=== PATIENT | male | born 1945 | race Caucasian/White ===

== ENCOUNTER 2016-12-29 07:30 | Inpatient (IN) | payer MEDICARE, MEDICAID ==
[~2016-12-29 07:30] MED LIST: Buffered Lidocaine 1% SYRIN* 3 ML/SYR SYRINGE INTRADERM ONE; Dexamethasone IV* 4 MG/ML 1 ML (4 MG) IV SLOW PU ONE; Famotidine IV* 10 MG/ML 2 ML (20 mg) IV ONE
--- NOTE | 2017-01-14 21:59 | HP ---
HISTORY AND PHYSICAL: DATE OF ADMISSION/SURGERY: 01/19/17 DATE OF OFFICE VISIT: 01/14/17 SURGEON: Dr. Sousa. PROCEDURE: Right total knee replacement. CHIEF COMPLAINT: Right knee pain. HISTORY OF PRESENT ILLNESS: The patient is a very pleasant 71-year-old gentleman with a longstanding history of right knee pain. He is noted over the past year that he has had increased swelling in his knee and has had to modify his activities. He has failed conservative treatments such as exercises and anti-inflammatories and has elected to undergo a right total knee replacement by Dr. Sousa. PAST MEDICAL HISTORY: 1. Osteoarthritis. 2. BPH. 3. Diabetes mellitus, type 2. 4. Hypertension. 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 PAST SURGICAL HISTORY: 1. 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 2. Appendectomy in . MEDICATIONS: 1. Terazosin 5 mg 1 tablet by mouth daily. 2. Glipizide 10 mg 1 tablet by mouth twice daily. 3. Metformin 1000 mg 1 tablet by mouth twice daily. 4. Onglyza 5 mg 1 tablet by mouth daily. 5. Lisinopril 10 mg 1 tablet by mouth daily. 6. Ibuprofen as needed for pain. ALLERGIES: No known drug allergies. FAMILY HISTORY: Father, heart disease. Mother from "old age" at age 93. Brother with cancer. No bleeding disorders or clotting difficulties or blood clots in the family. SOCIAL HISTORY: The patient is a hussein and he is and resides with his . He has no tobacco use currently. He discontinued approximately 30 years ago. No history of drug use. Rare alcohol use. The patient does not check his blood sugars at home. REVIEW OF SYSTEMS: General: Negative for fevers, chills, night sweats. No difficulties with anesthesia. HEENT: Negative for headache, lightheadedness, or syncopal episodes. Integumentary: Negative for abrasions, lesions, or open wounds. Cardiothoracic: Negative for chest pain, palpitations, or edema. Positive for hypertension. Pulmonary: Negative for shortness of breath with exertion, chronic cough, or COPD. GI: Negative for nausea, vomiting, constipation, diarrhea, or GERD. : Negative for nocturia, urinary frequency , urgency, history of UTIs, or kidney problems. Musculoskeletal: Positive for right knee pain. Negative for intermittent back pain or fractures. Neuro: Negative for paresthesias, seizures, stroke, or epilepsy. Positive for numbness in the right foot. Endocrine: Negative for thyroid disease. Positive for diabetes, type 2, controlled with medications. Hematologic: Negative for easy bruising, anemia, or excessive bleeding. No history of DVTs or PEs. Infectious Disease: Negative for MRSA, hepatitis C, or HIV. PHYSICAL EXAMINATION GENERAL: Well appearing, in no acute distress, alert and oriented, sitting comfortably, antalgic gait favoring the right side. VITAL SIGNS: Height 73 inches, weight 245 pounds. Pulse 78, blood pressure 130 /85, respirations 18. BMI of 32.3. HEENT: Normocephalic, atraumatic. EOMI. NECK: Supple. No palpable lymph nodes. Throat clear. PULMONARY: Lungs are clear to auscultation bilaterally. No crackles, rhonchi, or wheezes. HEART: Regular rate and rhythm. No murmurs, gallops, or rubs. ABDOMEN: Soft, nontender. Mild obesity. Normoactive bowel sounds. Negative CVA tenderness bilaterally. NEUROLOGIC: Alert and oriented x3. Cranial nerves grossly intact. Sensation intact to light touch, bilateral lower extremities. MUSCULOSKELETAL: Left knee full range of motion. No joint effusion appreciated. Right knee, minimal joint effusion. Range of motion is 0 to approximately 100 degrees, causing pain after 100. Posterior tibial pulses 2+ bilaterally. No edema in bilateral lower extremities. Negative Homans' sign bilaterally. DIAGNOSTIC STUDIES: X-rays of the knee were obtained 01/13/17. IMPRESSION: The patient is a very pleasant 71-year-old gentleman who elects to undergo a right total knee replacement by Dr. Sousa on 01/19/17. He has had cardiac clearance due to an abnormal EKG by Dr. Campbell on 01/01/17 and did not require any further cardiac workup. He was cleared by his primary doctor, Dr. Crump, on 12/22/16. He will go to the preoperative testing at [facility] today for PT/INR, blood typing, and chest x-ray. Postoperatively, the patient would prefer to go home as opposed to rehab. He was not given any medications today. We discussed the risks and benefits associated with the procedure. He had no further questions or concerns; however, will call us if any do arise. FRANCES RICKS [id number]/[facility] #: [id number] [facility] CENTERFaye
[2017-01-19] MEDS ORDERED: Buffered Lidocaine 1% SYRIN* 3 ML/SYR SYRINGE INTRADERM ONE (06:00)
[2017-01-19] MEDS ORDERED: ceFAZolin 2 GM PREMIX(*) 2 GM/50 ML BAG IVPB ONE (08:46)
[2017-01-19] MEDS ORDERED: Midazolam* 1 MG/ML 2 ML VIAL (2 MG) ONE (09:36)
[2017-01-19] MEDS ORDERED: fentaNYL* 50 MCG/ML 2 ML VIAL (100 MCG VIAL) ONE ×2 (09:36→12:22)
[2017-01-19] MEDS ORDERED: Famotidine IV* 10 MG/ML 2 ML (20 mg) ONE (09:36)
[2017-01-19] MEDS ORDERED: Bupivacaine 0.25% EPI 200,000* 30 ML SDV ONE (10:47)
[2017-01-19] MEDS ORDERED: Cisatracurium* 2 MG/ML MDV 10 ML ONE (10:54)
[2017-01-19] MEDS ORDERED: HYDROmorphone* 1 MG/ML 1 ML SYR ONE ×2 (11:32→11:49)
[2017-01-19] MEDS ORDERED: Lidocaine 2% PF* 5 ML VIAL ONE (11:39)
[2017-01-19] MEDS ORDERED: Dexamethasone IV* 4 MG/ML 1 ML (4 MG) ONE (11:39)
[2017-01-19] MEDS ORDERED: Propofol* 10 MG/ML 20 ML BTL IV PUSH ONE (11:39)
[2017-01-19] MEDS ORDERED: Ketorolac INJ* 30 MG/ML 1 ML VIAL ONE (12:42)
[2017-01-19] MEDS ORDERED: HYDROmorphone* 1 MG/ML 1 ML SYR IV PRN (12:44)
[2017-01-19] MEDS ORDERED: Ondansetron INJ* 2 MG/ML VIAL IV PRN (12:44)
[2017-01-19] MEDS ORDERED: PROCHLORPERAZINE INJ 5 MG/ML 2 ML VIAL IV PRN (12:44)
[2017-01-19] MEDS ORDERED: Acetaminophen TAB* 325 MG PO PRN ×2 (12:44→13:23)
[2017-01-19] MEDS ORDERED: Scopolamine 1.5 mg* PATCH TRANSDERM PRN (12:44)
[2017-01-19] MEDS ORDERED: fentaNYL* 50 MCG/ML 2 ML VIAL (100 MCG VIAL) IV PRN (12:44)
[2017-01-19] MEDS ORDERED: Polyethylene Glycol 3350* 17 GM PACKET PO PRN (13:23)
[2017-01-19] MEDS ORDERED: diPHENhydraMINE IV* 50 MG/ML 1 ml VIAL (BENADRYL) IV PRN (13:23)
[2017-01-19] MEDS ORDERED: LACTULOSE* 30 ML UDC PO PRN (13:23)
[2017-01-19] MEDS ORDERED: Bisacodyl SUPP* 10 MG SUPP PR PRN (13:23)
[2017-01-19] MEDS ORDERED: Morphine INJ* 4 MG/ML 1 ML SYRINGE IV PRN (13:23)
[2017-01-19] MEDS ORDERED: Ondansetron TAB* 4 MG PO PRN (13:23)
[2017-01-19] MEDS ORDERED: D5W 1/2 NS 1000 ML BAG* 1,000 ML IV SCH (14:00)
[2017-01-19] MEDS ORDERED: Dextrose 50% Syringe 50 ML* 25 GM/50 ML SYRINGE IV PUSH PRN (14:20)
--- NOTE | 2017-01-19 14:21 | RAD ---
HISTORY: Status post right knee arthroplasty COMPARISONS: None VIEWS: 2, Frontal and lateral views of the right knee FINDINGS: BONE DENSITY: Normal. BONES: The patient is status post right knee arthroplasty. There is no hardware failure or osteolysis. JOINTS: The patient is status post right knee arthroplasty ALIGNMENT: There is no dislocation. SOFT TISSUES: There is postsurgical change to the soft tissue OTHER FINDINGS: None. IMPRESSION: STATUS POST RIGHT KNEE ARTHROPLASTY
[2017-01-19] MEDS: ceFAZolin 1 GM in Dextrose (*) 1 GM/50 ML BAG IVPB SCH (15:56)
--- NOTE | 2017-01-19 16:17 | CONS ---
CONSULTATION REPORT: DATE OF CONSULT: 01/19/17 PRIMARY CARE PROVIDER: Dr. Crump. ATTENDING PHYSICIAN WHILE IN THE HOSPITAL: Dr. Vipul Burt (report being dictated by Freedom Mendez NP). REQUESTING PHYSICIAN FOR CONSULTATION: Dr. Sousa. REASON FOR MEDICAL CONSULTATION: Medical evaluation and management of her comorbid medical problems. HISTORY OF PRESENT ILLNESS: I refer you to Dr. Sousa's H and P for further details. In short, Mr. Hyde is a 71-year-old male patient. He has a history of osteoarthritis, BPH, hypertension, polio and diabetes. He has been dealing with right knee pain for some time. It has gotten to the point where he was failing conservative management, affecting his activities of daily living. It got to the point where it was felt that he would benefit from an elective total knee replacement, which he underwent today with Dr. Sousa. Again, we were asked to evaluate to help manage his other medical problems. He was evaluated in the PACU. He denies having any chest pain. Denies having any shortness of breath. He states he feels a little tired, but he says his pain is well controlled. He says he does not feel lightheaded or like he is going to faint and he says that he does not really feel all that hungry right now, he just feels tired, this is his only complaint. He says he did not take his medications this morning. PAST MEDICAL HISTORY: Significant for: 1. Arthritis. 2. BPH. 3. Diabetes 4. Hypertension. 5. Polio. PAST SURGICAL HISTORY: 1. He has had now a right total knee replacement. 2. Appendectomy. 3. He has had a resection of a middle ear mass. HOME MEDICATIONS: Include: 1. Hytrin 5 mg daily. 2. Onglyza 5 mg daily. 3. Metformin 1000 mg p.o. b.i.d. 4. Lisinopril 10 mg daily. 5. Glucotrol 10 mg p.o. b.i.d. ALLERGIES TO MEDICATIONS: Include no known drug allergies. FAMILY HISTORY: His mother of old age at 93. His father had a history of heart disease. SOCIAL HISTORY: He is not a smoker. He does not drink alcohol. He is a hussein and his surrogate decision maker is his daughter and . REVIEW OF SYSTEMS: There is no documented fever. No significant weight change. There was no double vision. There is no ear discharge. He denies having any rhinorrhea. There is no sore throat. No thyroid enlargement. Denies having any chest pain. There is no orthopnea. No nocturnal dyspnea. There is no abdominal pain. No nausea. No vomiting. No dysuria. No frequency. There is no loss of consciousness. No pruritus and no skin ulcerations. Review of 14 systems completed, all others negative. PHYSICAL EXAMINATION: Vital Signs: Blood pressure 152/83, pulse 76, respirations 20, O2 saturation 94%, temperature 98.2. General: At this time, Mr. Hyde is a 71-year-old male patient. He is well nourished, well developed. He is sitting in the PACU bed. He does not appear to be in acute distress. HEENT: Head atraumatic, normocephalic. Eyes: Sclerae are anicteric. Mouth pale. Throat: Oral mucosa appears to be moist. No oropharyngeal erythema. Neck: Supple. Heart: Sounds S1, S2. Regular rate and rhythm. No murmurs, rubs, or gallops. Lungs: Clear to auscultation bilaterally. No wheezes, rales , or rhonchi. Abdomen: Soft, flat, nontender. Bowel sounds present. Extremities: Pulses 2+ throughout. Distal CSM checks are intact. In the right lower extremity, he has 5/5 strength in the upper. Neurologically, he is awake, he is alert, and he is oriented x3. His tongue is midline. Curbstone Setter are equal. He had no gross focal deficits. Skin: Grossly intact with the exception he has got incision to the right knee that is covered with an Elia dressing. DIAGNOSTIC STUDIES/LAB DATA: Preoperatively revealed WBC 6.0, RBC of 4.79, hemoglobin 14.4, hematocrit 43, platelet count 202, INR of 0.91, PTT of 32.5. Sodium 135, potassium 4.2, chloride 105, bicarb 22, BUN 16, creatinine 1, glucose 162, A1c of 10.2. AST 13, ALT 22. Preop urine showed trace ketones, 2 + glucose. He had an EKG preoperatively, which showed a normal sinus rhythm with a rate of 65. No ST elevations or T-wave inversions. Preop chest x-ray was negative. No acute disease. Old medical records were reviewed. ASSESSMENT AND PLAN: Mr. Hyde is a 71-year-old male patient coming into the care of Dr. Sousa today for an elective right total knee. Hospitalist service was asked to evaluate in consult. Recommendations at this point are: 1. Status post right total knee: I will defer the management of this to Dr. Sousa and his team. 2. Osteoarthritis: Defer the management to Dr. Crump and Dr. Sousa. 3. Benign prostatic hypertrophy: Continue Hytrin. 4. Diabetes: We will place him on lispro sliding scale. Appears to be stable. 5. Hypertension: For the time being, I am going to hold his lisinopril. May need to restart this tomorrow, but in the acute postoperative setting we will hold it for now. 6. Polio: Again, not an active issue. 7. Fluids, electrolytes, and nutrition: I did change his fluids from D5 half normal to LR because of the history of diabetes for overnight. This can be discontinued when he is taking good p.o. intake. In addition to this, I did place him on a consistent carbohydrate diet. 8. Code status: He is a full code. 9. DVT prophylaxis: Deferred to the primary team. TIME SPENT: Time spent on the consult was 60 minutes; greater than half the time was spent [id number] with the patient obtaining my history and physical, other half the time spent going over the plan of care with the patient and implementing plan of care. I did discuss the plan of care with my attending, Dr. Burt; he is in agreement. FREEDOM MENDEZ NP CC: Dr. Crump; Dr. Sousa * [id number]/[facility] #: [id number] [facility]PITAL[facility]aye
[2017-01-19] MEDS: amLODIPine TAB* 5 MG PO SCH (16:41)
[2017-01-19] MEDS ORDERED: Warfarin TAB(*) 10 MG PO ONE (17:00)
[2017-01-19] MEDS: Insulin LISPRO* 1 UNITS UNIT SUBCUT SCH (17:27)
[2017-01-19] MEDS: Docusate CAP* 100 MG PO SCH (20:44)
[2017-01-19] MEDS: Magnesium Hydroxide LIQ* 30 ML UDC PO SCH (20:56)
[2017-01-20] MEDS: oxyCODONE/Acetamin 5/325 MG* TAB PO PRN ×4 (00:22→21:51)
[2017-01-20] MEDS: ceFAZolin 1 GM in Dextrose (*) 1 GM/50 ML BAG IVPB SCH ×2 (00:46→08:37)
--- NOTE | 2017-01-20 01:13 | OP ---
DATE OF OPERATION: 01/19/17 - ROOM #348 DATE OF : 41 SURGEON: Daniel Sousa MD EMERGENCY PREPAREDNESS MANAGER: Lizette Castellon RPA ANESTHESIOLOGIST: Andrew Melendrez MD ANESTHESIA: General. PRE-OP DIAGNOSIS: Osteoarthritis, right knee. POST-OP DIAGNOSIS: Osteoarthritis, right knee. OPERATIVE PROCEDURE: Right total knee arthroplasty. ESTIMATED BLOOD LOSS: Less than 50 cc. COMPLICATIONS: None. HARDWARE: Stephanie Persona #8 femur, G-tibia, 12-mm polyethylene spacer, 35 mm all polyethylene patellar button. SUMMARY: Mr. Hyde is a 71-year-old male who has had a long history of troubles with right knee pain. He had been treated conservatively, but has been having more and more limitations with the knee. I discussed with him that a total knee arthroplasty should work well to decrease his pain and improve his function. Risks of surgery such as infection, scar formation, stiffness, DVT, pulmonary embolism, hardware failure were some of the risks discussed. He had been declared medically optimized and wished to proceed. DESCRIPTION OF PROCEDURE: The patient was brought to the OR and general anesthesia was established. Hernandez catheter was then placed. Tourniquet was placed over the proximal right thigh and was used during the case. Total tourniquet time would be 75 minutes. Right knee was prepped and then draped. Skin over the incisional area was infiltrated using 0.25% Marcaine with epinephrine and approximately 20 cc were used at the beginning of the case and then another 40 cc were placed at the end of the case. Esmarch was used to exsanguinate the leg and the tourniquet was raised. Midline incision was made beginning just medial to the tibial tubercle and carried about 4 cm above the superior pole of the patella. Incision was carried down through the skin and subcutaneous tissues. Small bleeders encountered were ligated using electrocautery. Extensor mechanism was exposed and a sharp parapatellar arthrotomy was made. Quite a bit of clear yellowish joint fluid was encountered. Several small pearls were found and removed. Fat pad was sharply excised and the soft tissues were sharply elevated from the medial side of the tibia. Patella measured almost 26 mm in thickness and a nice 10-mm cut was taken. Patella was then easily subluxated laterally and the knee was flexed up. Nice exposure of the distal femur was obtained. Step drill was used to open the femoral canal and intramedullary guide was placed. Guide was adjusted until it was parallel with the epicondyles and then it was pinned into place. Distal femoral cutting guide was then pinned into place and the intramedullary guide was removed. Distal femoral cut was taken and it appeared a nice cut was obtained. Femur was sized and because of large osteophytes, it was initially quite difficult to seat. After resecting some osteophytes, he sat nicely for an 8. Holes were drilled and cutting block was placed. Drilling the superior hole to see if I would notch, the cutting block was seated a little too inferiorly. This was moved up in 2 mm increments until the die presser drill came out right at the level of the anterior cortex. Anterior and posterior femoral cuts followed by the chamfer cut were all taken. Attention was then turned to the tibia. Step drill was used to open the tibial canal and the intramedullary guide was placed. Outrigger was assembled and adjusted until it would take 2 mm from the very worn medial side. Cutting guide was then pinned into place and the proximal tibial cut was taken. The cut was nice and thin right on that side and it could be seen how the saw came up right along that area of hardened bone. Cutting guide was removed and spacer block was placed. With a 10 block and using a drop maryanne, it could be seen how that hardened area had pushed me up a little bit and it was in slight varus. Re-cutter was then placed and pinned into place and then used to re-cut the tibia. Now, with the spacer block sitting flush on the top of the tibia, drop maryanne came right down along the anterior spine of the tibia as well. It could be seen, however, how there was a bit of a gap on the lateral femoral condyle and I needed to take a millimeter from the medial femoral condyle. Saw was used to free hand that side and then the cutting block was re-placed and the chamfer cuts re-cut. With its well block, he sat very nicely coming out in the full extension and with flexion was nice and stable. Tibia was sized and the G sat very nicely. H was trialed, but it was too big from medial to lateral. It would have fit anterior to posterior, however. G was then pinned into place and the proximal tibia was drilled and then punched. #8 femur was also placed and the femur had the drill holes drilled and the notch cut was taken. A 12-mm poly was then placed and he came out nicely into full extension and flexed quite nicely as well. Patella tracked mostly well, but would tend to slip every now and then. Patella was sized and the 35 sat very nicely. Holes were drilled. The trial was snapped into place. With the trial on, patellar tracking was perfect. Trial instrumentation was removed and the knee was copiously pulse lavaged. Cement was being prepared. Tibia followed by femur and patella were all cemented into place. Excess cement was removed and the cement was allowed to harden. Once the cement had hardened, knee was again searched for additional cement and loose bodies and a few small of pieces of cement were found. The knee was again pulse lavaged and 12 mm polyethylene was then snapped into place. He had the same wonderful motion and stability. Parapatellar arthrotomy was then repaired using interrupted #1 sutures, and the tourniquet was let down. No significant bleeding was encountered. Subcutaneous tissues were reapproximated using 2-0 Vicryl. Skin was closed using shaunna. Sterile dressing was applied. The patient had the LMA removed in the OR, and was stable on transfer to the recovery room. [id number]/[facility] #: [id number] DYLAN
[2017-01-20 06:48] LABS: Hematocrit 33 % (42-52); Hemoglobin 11.5 g/dl (14.0-18.0); Mean Corpuscular HGB Conc 35 g/dl (31-36); Mean Corpuscular Hemoglobin 31 pg (27-31); Mean Corpuscular Volume 88 fL (80-94); Mean Platelet Volume 9 um3 (7.4-10.4); Red Blood Count 3.74 10^6/ul (4.0-5.4); Red Cell Distribution Width 13 % (10.5-15); White Blood Count 13.7 10^3/ul (3.5-10.8)
[2017-01-20 07:10] LABS: Calcium 8.3 mg/dL (8.6-10.3); EGFR African American 99.9 (>60); EGFR Non-African American 77.7 (>60); Potassium 3.9 mmol/L (3.5-5.0)
[2017-01-20] MEDS: amLODIPine TAB* 5 MG PO SCH (08:28)
[2017-01-20] MEDS: Magnesium Hydroxide LIQ* 30 ML UDC PO SCH ×2 (08:28→21:51)
[2017-01-20] MEDS: Docusate CAP* 100 MG PO SCH ×2 (08:30→21:51)
[2017-01-20] MEDS: Terazosin CAP* 5 MG PO SCH (08:30)
[2017-01-20] MEDS: Insulin LISPRO* 1 UNITS UNIT SUBCUT SCH ×3 (08:30→16:47)
[2017-01-20] MEDS: Vitamin THERAPEUTIC TAB PO SCH (08:30)
--- NOTE | 2017-01-20 08:59 | PN ---
Progress Note - Progress Note SOAP: Subjective: []Patient seen at bedside. Offers no complaints of knee pain currently. Denies SOB, CP or dizziness. Objective: [] Vital Signs Temp 97.8 F 01/20/17 08:11 Pulse 80 01/20/17 08:11 Resp 18 01/20/17 08:29 BP 140/78 01/20/17 08:11 Pulse Ox 97 01/20/17 08:11 Intake & Output 01/19/17 01/20/17 01/20/17 18:59 06:59 18:59 Intake Total 2190 1885 Output Total 420 2100 Balance 1770 -215 Weight 243 lb Intake: IV Fluids 1950 965 LR 1900 965 NS 50ML, Cefazolin 2G 50 IVPB 60 ABX - CEFAZOLIN 60 Oral 240 860 Output: Hernandez 400 2100 Residual 20 Hernandez 16 Fr 20 Laboratory Results - last 24 hr 01/19/17 01/19/17 01/19/17 09:03 16:33 16:43 WBC RBC Hgb Hct MCV MCH MCHC RDW Plt Count MPV Neut % (Auto) Lymph % (Auto) [place] % (Auto) Eos % (Auto) Baso % (Auto) Absolute Neuts (auto) Absolute Lymphs (auto) Absolute Monos (auto) Absolute Eos (auto) Absolute Basos (auto) Absolute Nucleated RBC Nucleated RBC % INR (Anticoag Therapy) Sodium Potassium Chloride Carbon Dioxide Anion Gap BUN Creatinine Est GFR ( Amer) Est GFR (Non-Af Amer) BUN/Creatinine Ratio Glucose POC Glucose (mg/dL) 198 H 349 H 341 H Calcium 01/20/17 01/20/17 01/20/17 06:07 06:07 06:07 WBC 13.7 H RBC 3.74 L Hgb 11.5 L Hct 33 L MCV 88 MCH 31 MCHC 35 RDW 13 Plt Count 191 MPV 9 Neut % (Auto) 89.3 H Lymph % (Auto) 5.3 L [place] % (Auto) 5.0 Eos % (Auto) 0.1 Baso % (Auto) 0.3 Absolute Neuts (auto) 12.3 H Absolute Lymphs (auto) 0.7 L Absolute Monos (auto) 0.7 Absolute Eos (auto) 0 Absolute Basos (auto) 0 Absolute Nucleated RBC 0.01 Nucleated RBC % 0.1 INR (Anticoag Therapy) 1.10 Sodium 133 Potassium 3.9 Chloride 104 Carbon Dioxide 22 Anion Gap 7 BUN 19 Creatinine 0.95 Est GFR ( Amer) 99.9 Est GFR (Non-Af Amer) 77.7 BUN/Creatinine Ratio 20.0 Glucose 211 H POC Glucose (mg/dL) Calcium 8.3 L 01/20/17 07:23 WBC RBC Hgb Hct MCV MCH MCHC RDW Plt Count MPV Neut % (Auto) Lymph % (Auto) [place] % (Auto) Eos % (Auto) Baso % (Auto) Absolute Neuts (auto) Absolute Lymphs (auto) Absolute Monos (auto) Absolute Eos (auto) Absolute Basos (auto) Absolute Nucleated RBC Nucleated RBC % INR (Anticoag Therapy) Sodium Potassium Chloride Carbon Dioxide Anion Gap BUN Creatinine Est GFR ( Amer) Est GFR (Non-Af Amer) BUN/Creatinine Ratio Glucose POC Glucose (mg/dL) 216 H Calcium Right knee dressing C/D/I Calf non tender and soft +DF/PF neuro intact Assessment: []s/p Right total knee arthroplasty POD #1 Plan: []PT WBAT Coumadin with heparin bridge Hopes to go home
[2017-01-20] MEDS ORDERED: metFORMIN* 1,000 MG TAB PO SCH (09:00)
[2017-01-20] MEDS ORDERED: GLIPIZIDE 10 MG PO SCH (09:00)
[2017-01-20] MEDS ORDERED: Influenza VAC *QUAD* 2016-17* 0.5 ML SYRINGE IM ONE (09:00)
[2017-01-20] MEDS ORDERED: Lisinopril TAB* 10 MG PO SCH (09:00)
[2017-01-20] MEDS: Heparin VIAL(*) 5000 UNITS/ML VIAL (FIVE THOUSAND) SUBCUT SCH ×2 (11:37→21:53)
[2017-01-20] MEDS: oxyCODONE TAB* 5 MG TAB PO PRN (13:14)
[2017-01-20] MEDS ORDERED: Warfarin TAB(*) 4 MG PO ONE (17:00)
[2017-01-21] MEDS: oxyCODONE TAB* 5 MG TAB PO PRN ×2 (01:15→21:17)
[2017-01-21] MEDS: oxyCODONE/Acetamin 5/325 MG* TAB PO PRN ×4 (05:38→18:24)
[2017-01-21 07:42] LABS: Hematocrit 33 % (42-52); Hemoglobin 11.2 g/dl (14.0-18.0)
[2017-01-21] MEDS: Ondansetron INJ* 2 MG/ML VIAL IV PRN ×2 (08:13→14:11)
[2017-01-21] MEDS: Terazosin CAP* 5 MG PO SCH (08:15)
[2017-01-21] MEDS: Vitamin THERAPEUTIC TAB PO SCH (08:15)
[2017-01-21] MEDS: Docusate CAP* 100 MG PO SCH ×2 (08:15→21:17)
[2017-01-21] MEDS: Heparin VIAL(*) 5000 UNITS/ML VIAL (FIVE THOUSAND) SUBCUT SCH ×2 (08:15→21:18)
[2017-01-21] MEDS: amLODIPine TAB* 5 MG PO SCH (08:15)
[2017-01-21] MEDS: Magnesium Hydroxide LIQ* 30 ML UDC PO SCH ×2 (08:18→21:18)
[2017-01-21] MEDS: Insulin LISPRO* 1 UNITS UNIT SUBCUT SCH ×3 (08:35→17:39)
--- NOTE | 2017-01-21 09:49 | PN ---
Progress Note - Progress Note SOAP: Subjective: []Patient seen at bedside. Pain more pronounced now that the block has worn off. "I had a rough night". Pain now better managed. Denies CP, SOB or dizziness. Objective: [] Vital Signs Temp 98.2 F 01/21/17 07:18 Pulse 66 01/21/17 07:18 Resp 18 01/21/17 08:00 BP 136/61 01/21/17 07:18 Pulse Ox 91 01/21/17 07:18 Intake & Output 01/20/17 01/21/17 01/21/17 18:59 06:59 18:59 Intake Total 2437 720 Output Total 1025 1275 0 Balance 1412 -555 0 Intake: IV Fluids 942 LR 942 IVPB 55 ABX - CEFAZOLIN 55 Oral 1440 720 Output: Urine 1025 1275 0 Other: Date of Last Bowel 01/18/17 Movement Laboratory Results - last 24 hr 01/20/17 01/20/17 01/21/17 11:40 16:43 07:06 Hgb 11.2 L Hct 33 L INR (Anticoag Therapy) POC Glucose (mg/dL) 246 H 122 H 01/21/17 01/21/17 07:06 07:42 Hgb Hct INR (Anticoag Therapy) 1.21 H POC Glucose (mg/dL) 214 H Right knee Elia dry, dressings removed, incision is benign without drainage Moderate ecchymosis right calf without tenderness Clary's negative +DF/PF right foot neuro intact Assessment: []s/p right total knee arthroplasty POD #2 Plan: []PT/OT WBAT Coumadin with heparin bridge, 6 mg today Home
[2017-01-21] MEDS ORDERED: Warfarin TAB(*) 6 MG PO SCH (17:00)
[2017-01-22] MEDS: oxyCODONE TAB* 5 MG TAB PO PRN ×4 (03:49→21:05)
[2017-01-22 07:23] LABS: Hematocrit 32 % (42-52); Hemoglobin 11.1 g/dl (14.0-18.0)
[2017-01-22] MEDS: Insulin LISPRO* 1 UNITS UNIT SUBCUT SCH ×3 (08:02→17:40)
[2017-01-22] MEDS: Magnesium Hydroxide LIQ* 30 ML UDC PO SCH ×2 (08:03→21:07)
[2017-01-22] MEDS: Heparin VIAL(*) 5000 UNITS/ML VIAL (FIVE THOUSAND) SUBCUT SCH ×2 (08:03→21:05)
[2017-01-22] MEDS: Terazosin CAP* 5 MG PO SCH (08:03)
[2017-01-22] MEDS: amLODIPine TAB* 5 MG PO SCH (08:03)
[2017-01-22] MEDS: Docusate CAP* 100 MG PO SCH ×2 (08:03→21:06)
[2017-01-22] MEDS: Vitamin THERAPEUTIC TAB PO SCH (08:03)
--- NOTE | 2017-01-22 09:52 | PN ---
Progress Note - Progress Note SOAP: Subjective: []Patient seen OOB in chair. Pain better managed but still no BM. Has had Milk of Mag. Hopes that he will have BM so he can go home this afternoon. Objective: [] Vital Signs Temp 98.3 F 01/22/17 07:28 Pulse 70 01/22/17 07:28 Resp 18 01/22/17 08:04 BP 146/61 01/22/17 07:28 Pulse Ox 97 01/22/17 07:28 Intake & Output 01/21/17 01/22/17 01/22/17 18:59 06:59 18:59 Intake Total 820 460 Output Total 1400 550 0 Balance -580 -90 0 Intake: Oral 820 460 Output: Urine 1400 550 0 Laboratory Results - last 24 hr 01/21/17 01/21/17 01/22/17 11:51 16:43 07:14 Hgb 11.1 L Hct 32 L INR (Anticoag Therapy) POC Glucose (mg/dL) 129 H 342 H 01/22/17 01/22/17 07:14 07:33 Hgb Hct INR (Anticoag Therapy) 1.33 H POC Glucose (mg/dL) 292 H Right knee BEST C/D/I calf eccyhmotic, non tender +DF/PF neuro intact Assessment: []s/p Right total knee arthoplasty POD #3 Plan: []Bowel regimen as ordered Home later today if + BM Follow up with Dr. Sousa in 3- 4 weeks
[2017-01-22] MEDS ORDERED: Scopolomine PATCH Remove* 1 NOTE MISC PATCH OFF ONE (12:46)
--- NOTE | 2017-01-22 16:41 | PN ---
Subjective Date of Service: 01/22/17 Interval History: Mr. Hyde denies complaint other than some mild knee pain today. He specifically denies chest pain, SOB, nausea, or abdominal pain. Objective Active Medications: Acetaminophen (Tylenol Tab*) 650 mg PO Q4H PRN Amlodipine Besylate (Norvasc Tab*) 5 mg PO DAILY SHIRA Bisacodyl (Dulcolax Supp*) 10 mg GA DAILY PRN Dextrose (D50w Syringe 50 Ml*) 12.5 gm IV PUSH .FOR FS < 60 - SS PRN Diphenhydramine HCl (Benadryl Iv*) 12.5 mg IV Q6H PRN Docusate Sodium (Colace Cap*) 100 mg PO BID SHIRA Heparin Sodium (Porcine) (Heparin Vial(*)) 5,000 units SUBCUT Q12HR SHIRA Lactated Ringer's (Lactated Ringers 1000 Ml Bag*) 1,000 mls @ 100 mls/hr IV PER RATE SHIRA Insulin Human Lispro (Humalog*) 0 units SUBCUT AC SHIRA Lactulose (Lactulose*) 30 ml PO Q6H PRN Magnesium Hydroxide (Milk Of Magnesia Liq*) 30 ml PO BID SHIRA Morphine Sulfate (Morphine Inj (Syringe)*) 4 mg IV Q2H PRN Multivitamins (Theragran Tab*) 1 tab PO DAILY SHIRA Ondansetron HCl (Zofran Inj*) 4 mg IV Q6H PRN Ondansetron HCl (Zofran Tab*) 4 mg PO Q6H PRN Oxycodone HCl (Roxycodone Tab*) 10 mg PO Q4H PRN Oxycodone/Acetaminophen (Percocet 5/325 Tab*) 1 tab PO Q4H PRN Oxycodone/Acetaminophen (Percocet 5/325 Tab*) 2 tab PO Q4H PRN Pharmacy Profile Note (Coumadin Daily Reminder*) 1 note FOLLOW UP 1700 SHIRA Polyethylene Glycol/Electrolytes (Miralax*) 17 gm PO DAILY PRN Terazosin HCl (Hytrin Cap*) 5 mg PO DAILY SHIRA Warfarin Sodium (Coumadin Tab(*)) 8 mg PO ONCE@1700 ONE Vital Signs 01/21/17 01/21/17 01/21/17 18:24 19:23 19:52 Temperature 97.8 F Pulse Rate 79 Respiratory 18 16 20 Rate Blood Pressure 141/67 (mmHg) O2 Sat by Pulse 95 Oximetry 01/21/17 01/21/17 01/21/17 20:24 21:17 23:17 Temperature Pulse Rate Respiratory 20 20 18 Rate Blood Pressure (mmHg) O2 Sat by Pulse Oximetry 01/21/17 01/22/17 01/22/17 23:56 03:20 03:49 Temperature 98.1 F 98.2 F Pulse Rate 72 72 Respiratory 17 16 20 Rate Blood Pressure 149/67 112/84 (mmHg) O2 Sat by Pulse 96 97 Oximetry 01/22/17 01/22/17 01/22/17 05:49 07:28 08:00 Temperature 98.3 F Pulse Rate 70 Respiratory 20 17 18 Rate Blood Pressure 146/61 (mmHg) O2 Sat by Pulse 97 Oximetry 01/22/17 01/22/17 01/22/17 08:04 10:04 11:34 Temperature 98.0 F Pulse Rate 75 Respiratory 18 18 16 Rate Blood Pressure 131/67 (mmHg) O2 Sat by Pulse Oximetry 01/22/17 01/22/17 01/22/17 12:58 14:58 15:23 Temperature 98.1 F Pulse Rate 93 Respiratory 18 18 22 Rate Blood Pressure 138/58 (mmHg) O2 Sat by Pulse 95 Oximetry Oxygen Devices in Use Now: None Appearance: Male sitting up in bed in NAD Eyes: No Scleral Icterus Respiratory: Symmetrical Chest Expansion and Respiratory Effort, Clear to Auscultation Cardiovascular: NL Sounds; No Murmurs; No JVD, No Edema Abdominal: NL Sounds; No Tenderness; No Distention Extremities: No Edema Skin: No Rash or Ulcers Neurological: Alert and Oriented x 3, NL Muscle Strength and Tone Nutrition: Taking PO's Result Diagrams: 01/22/17 07:14 01/20/17 06:07 Assess/Plan/Problems-Billing Assessment: Mr. Hyde is a 71 yo male with a PMH of DM and HTN who was admitted on 01/19/17 for right knee arthroplasty. - Patient Problems (1) History of arthroplasty of left knee Comment: POD # 3, management per ortho. Pain meds prn with bowel regimen. Continue PT/OT. H/H stable. (2) Type 2 diabetes mellitus Comment: BGs elevated to 300s. Plan to check HgbA1c now, patient does not check BGs at home and knows he is high "when I have to get up to go to the bathroom a lot." Will resume metformin, add lantus, and continue lispro SSI coverage with meals. Hold glipizide and saxiglipzin. Patient recommended to obtain glucometer for home monitoring. (3) Hypertension Comment: SBP 130s. Resume lisinopril. (4) DVT prophylaxis Comment: Warfarin per ortho. Status and Disposition: Inpatient with disposition per ortho.
[2017-01-22] MEDS ORDERED: Warfarin TAB(*) 4 MG PO ONE (17:00)
[2017-01-22] MEDS: metFORMIN* 1,000 MG TAB PO SCH (17:40)
[2017-01-22] MEDS ORDERED: Insulin GLARGINE(*) 1 UNITS UNIT SUBCUT SCH (21:00)
[2017-01-23] MEDS: oxyCODONE TAB* 5 MG TAB PO PRN (03:28)
[2017-01-23 07:04] LABS: Hematocrit 30 % (42-52); Hemoglobin 10.4 g/dl (14.0-18.0)
--- NOTE | 2017-01-23 08:33 | PN ---
Progress Note - Progress Note SOAP: Subjective: [71 y/o male s/p RIGHT total knee replacement. Patient reports feeling well, working well with PT. Eager for D/C today. H&H stable, VSS overnight. ] Objective: [General- Well appearing, NAD. AO MSK- Incision C/D/I, no drainage noted, no erythema. + DF/PF b/l, Moderate edema RIGHT LE's, +1 pitting. neg homans b/l. + ecchymosis over posterior R calf. ] Active Medications Generic Name Dose Route Start Last Admin Trade Name Freq PRN Reason Stop Dose Admin Acetaminophen 650 mg 01/19/17 13:23 Tylenol Tab* PO Q4H PRN pain, fever Amlodipine Besylate 5 mg 01/19/17 16:00 01/22/17 08:03 Norvasc Tab* PO 5 mg DAILY SHIRA Administration Bisacodyl 10 mg 01/19/17 13:23 Dulcolax Supp* MT DAILY PRN constipation Dextrose 12.5 gm 01/19/17 14:20 D50w Syringe 50 Ml* IV PUSH .FOR FS < 60 - SS PRN FS < 60 Diphenhydramine HCl 12.5 mg 01/19/17 13:23 01/19/17 20:53 Benadryl Iv* IV 12.5 mg Q6H PRN Administration PRURITIS Docusate Sodium 100 mg 01/19/17 21:00 01/22/17 21:06 Colace Cap* PO 100 mg BID SHIRA Administration Heparin Sodium (Porcine) 5,000 units 01/20/17 10:00 01/22/17 21:05 Heparin Vial(*) SUBCUT 5,000 units Q12HR SHIRA Administration Lactated Ringer's 1,000 mls @ 100 mls/hr 01/19/17 15:00 01/20/17 00:16 Lactated Ringers 1000 Ml Bag* IV 100 mls/hr PER RATE SHIRA Administration Insulin Glargine 10 units 01/22/17 21:00 01/22/17 21:06 Lantus(*) SUBCUT 10 units BEDTIME SHIRA Administration Insulin Human Lispro 0 units 01/19/17 16:30 01/22/17 17:40 Humalog* SUBCUT 15 units AC SHIRA Administration Protocol Lactulose 30 ml 01/19/17 13:23 Lactulose* PO Q6H PRN constipation Lisinopril 10 mg 01/23/17 09:00 Prinivil Tab* PO DAILY SHIRA Magnesium Hydroxide 30 ml 01/19/17 21:00 01/22/17 21:07 Milk Of Magnmaryann Liq* PO Not Given BID SHIRA Metformin HCl 1,000 mg 01/22/17 17:00 01/22/17 17:40 Glucophage* PO 1,000 mg 0800,1700 SHIRA Administration Morphine Sulfate 4 mg 01/19/17 13:23 Morphine Inj (Syringe)* IV Q2H PRN PAIN - BREAKTHROUGH Multivitamins 1 tab 01/20/17 09:00 01/22/17 08:03 Theragran Tab* PO 1 tab DAILY SHIRA Administration Ondansetron HCl 4 mg 01/19/17 13:23 01/21/17 14:11 Zofran Inj* IV 4 mg Q6H PRN Administration nausea Ondansetron HCl 4 mg 01/19/17 13:23 Zofran Tab* PO Q6H PRN NAUSEA Oxycodone HCl 10 mg 01/19/17 13:23 01/23/17 03:28 Roxycodone Tab* PO 10 mg Q4H PRN Administration PAIN - SEVERE Oxycodone/Acetaminophen 1 tab 01/19/17 13:23 01/20/17 06:31 Percocet 5/325 Tab* PO 1 tab Q4H PRN Administration PAIN - MILD Oxycodone/Acetaminophen 2 tab 01/19/17 13:23 01/21/17 18:24 Percocet 5/325 Tab* PO 2 tab Q4H PRN Administration PAIN - MODERATE Pharmacy Profile Note 1 note 01/20/17 17:00 01/22/17 15:12 Coumadin Daily Reminder* FOLLOW UP 1 note 1700 SHIRA Administration Polyethylene Glycol/Electrolytes 17 gm 01/19/17 13:23 Miralax* PO DAILY PRN Constipation Terazosin HCl 5 mg 01/20/17 09:00 01/22/17 08:03 Hytrin Cap* PO 5 mg DAILY SHIRA Administration Vital Signs Temp 98.4 F 01/23/17 03:27 Pulse 66 01/23/17 03:27 Resp 18 01/23/17 05:26 BP 135/63 01/23/17 03:27 Pulse Ox 98 01/23/17 03:27 Intake & Output 01/22/17 01/23/17 01/23/17 18:59 06:59 18:59 Intake Total 860 900 560 Output Total 900 600 200 Balance -40 300 360 Intake: Oral 860 900 560 Output: Urine 900 600 200 Other: Estimated Void Medium # Bowel Movements 0 # Voids 1 Laboratory Results - last 24 hr 01/22/17 01/22/17 01/22/17 06:07 11:50 17:24 Hgb Hct INR (Anticoag Therapy) POC Glucose (mg/dL) 343 H 365 H Hemoglobin A1c 10.0 H 01/23/17 01/23/17 06:27 06:30 Hgb 10.4 L Hct 30 L INR (Anticoag Therapy) 1.48 H POC Glucose (mg/dL) Hemoglobin A1c Assessment: [71 y/o male s/p RIGHT total knee replacement 01/19/2017] Plan: [DVT prophylaxis- continue lovenox today, coumadin 10mg today - Continue PT/OT - Follow up with Dr. Sousa within 3-4 weeks @ [facility] - Coumadin dosing- lovenox dosing today, Coumadin 10mg tonight, sat- 8mg sun- 8mg recheck on Thursday. ] Active Medications Generic Name Dose Route Start Last Admin Trade Name Freq PRN Reason Stop Dose Admin Acetaminophen 650 mg 01/19/17 13:23 Tylenol Tab* PO Q4H PRN pain, fever Amlodipine Besylate 5 mg 01/19/17 16:00 01/23/17 09:36 Norvasc Tab* PO 5 mg DAILY SHIRA Administration Bisacodyl 10 mg 01/19/17 13:23 Dulcolax Supp* MT DAILY PRN constipation Dextrose 12.5 gm 01/19/17 14:20 D50w Syringe 50 Ml* IV PUSH .FOR FS < 60 - SS PRN FS < 60 Diphenhydramine HCl 12.5 mg 01/19/17 13:23 01/19/17 20:53 Benadryl Iv* IV 12.5 mg Q6H PRN Administration PRURITIS Docusate Sodium 100 mg 01/19/17 21:00 01/23/17 09:35 Colace Cap* PO 100 mg BID SHIRA Administration Heparin Sodium (Porcine) 5,000 units 01/20/17 10:00 01/23/17 09:35 Heparin Vial(*) SUBCUT 5,000 units Q12HR SHIRA Administration Lactated Ringer's 1,000 mls @ 100 mls/hr 01/19/17 15:00 01/20/17 00:16 Lactated Ringers 1000 Ml Bag* IV 100 mls/hr PER RATE SHIRA Administration Insulin Glargine 10 units 01/22/17 21:00 01/22/17 21:06 Lantus(*) SUBCUT 10 units BEDTIME SHIRA Administration Insulin Human Lispro 0 units 01/19/17 16:30 01/23/17 09:34 Humalog* SUBCUT 12 units AC SHIRA Administration Protocol Lactulose 30 ml 01/19/17 13:23 01/23/17 09:36 Lactulose* PO 30 ml Q6H PRN Administration constipation Lisinopril 10 mg 01/23/17 09:00 01/23/17 09:35 Prinivil Tab* PO 10 mg DAILY SHIRA Administration Magnesium Hydroxide 30 ml 01/19/17 21:00 01/23/17 09:45 Milk Of Magnesia Liq* PO Not Given BID [facility] Metformin HCl 1,000 mg 01/22/17 17:00 01/23/17 09:35 Glucophage* PO 1,000 mg 0800,1700 [facility] Administration Morphine Sulfate 4 mg 01/19/17 13:23 Morphine Inj (Syringe)* IV Q2H PRN PAIN - BREAKTHROUGH Multivitamins 1 tab 01/20/17 09:00 01/23/17 09:35 Theragran Tab* PO 1 tab DAILY SHIRA Administration Ondansetron HCl 4 mg 01/19/17 13:23 01/21/17 14:11 Zofran Inj* IV 4 mg Q6H PRN Administration nausea Ondansetron HCl 4 mg 01/19/17 13:23 Zofran Tab* PO Q6H PRN NAUSEA Oxycodone HCl 10 mg 01/19/17 13:23 01/23/17 03:28 Roxycodone Tab* PO 10 mg Q4H PRN Administration PAIN - SEVERE Oxycodone/Acetaminophen 1 tab 01/19/17 13:23 01/20/17 06:31 Percocet 5/325 Tab* PO 1 tab Q4H PRN Administration PAIN - MILD Oxycodone/Acetaminophen 2 tab 01/19/17 13:23 01/23/17 09:36 Percocet 5/325 Tab* PO 2 tab Q4H PRN Administration PAIN - MODERATE Pharmacy Profile Note 1 note 01/20/17 17:00 01/22/17 15:12 Coumadin Daily Reminder* FOLLOW UP 1 note 1700 SHIRA Administration Polyethylene Glycol/Electrolytes 17 gm 01/19/17 13:23 Miralax* PO DAILY PRN Constipation Terazosin HCl 5 mg 01/20/17 09:00 01/23/17 09:36 Hytrin Cap* PO 5 mg DAILY SHIRA Administration
[2017-01-23] MEDS ORDERED: Lisinopril TAB* 10 MG PO SCH (09:00)
[2017-01-23] MEDS: Insulin LISPRO* 1 UNITS UNIT SUBCUT SCH ×2 (09:34→12:48)
[2017-01-23] MEDS: Docusate CAP* 100 MG PO SCH (09:35)
[2017-01-23] MEDS: Vitamin THERAPEUTIC TAB PO SCH (09:35)
[2017-01-23] MEDS: metFORMIN* 1,000 MG TAB PO SCH (09:35)
[2017-01-23] MEDS: Heparin VIAL(*) 5000 UNITS/ML VIAL (FIVE THOUSAND) SUBCUT SCH (09:35)
[2017-01-23] MEDS: oxyCODONE/Acetamin 5/325 MG* TAB PO PRN (09:36)
[2017-01-23] MEDS: Terazosin CAP* 5 MG PO SCH (09:36)
[2017-01-23] MEDS: amLODIPine TAB* 5 MG PO SCH (09:36)
[2017-01-23] MEDS: Magnesium Hydroxide LIQ* 30 ML UDC PO SCH (09:45)
[2017-01-23 12:10] VITALS: BP 140/61
--- NOTE | 2017-01-24 03:46 | DS ---
DISCHARGE SUMMARY: DATE OF ADMISSION: 01/19/17 DATE OF DISCHARGE: 01/23/17 CHIEF COMPLAINT: 1. Right knee end-stage osteoarthritis. 2. BPH. 3. Diabetes mellitus, type 2. 4. Hypertension. 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 DISCHARGE DIAGNOSES: 1. Status post right total knee replacement. 2. BPH. 3. Diabetes mellitus, type 2. 4. Hypertension. 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 PROCEDURE: Right total knee arthroplasty. BRIEF HISTORY: Mr. Hyde is a very pleasant 71-year-old gentleman with a long- standing history of right knee pain due to severe end-stage osteoarthritis. He has failed conservative treatment and elected to undergo a right right knee replacement by Dr. Sousa on 01/19/17. HOSPITAL COURSE: Mr. Hyde was admitted to [facility] on 01/19/17, where he underwent a right total knee arthroplasty. Postoperatively, he recovered on the surgical short-stay unit. On postoperative day 2, his Hernandez was removed and he was able to void on his own. He was advanced to a regular diet without difficulty and his pain was controlled with p.o. Percocet. He was restarted on his home medications. His labs and vital signs remained stable. He was able to weight bear as tolerated on the right lower extremity. He advanced appropriately with Physical Therapy and Occupational Therapy. His DVT prophylaxis was managed with Lovenox and Coumadin until he reached a therapeutic INR. By postoperative day 4, he was orthopedically and medically stable for discharge to go home with home services. PHYSICAL EXAMINATION: General: Well appearing, alert and oriented, in no acute distress. Vital Signs: Temperature 98.4, pulse 66, respirations 18, blood pressure 135/63, and pulse oxygenation 98% on room air. Right Knee: The incision is clean, dry, and intact with no drainage noted. No erythema. Positive dorsiflexion and plantar flexion bilateral lower extremities. Moderate edema in the right lower extremity, +1 pitting. Negative Homans bilaterally. Positive ecchymosis over the right posterior calf. Sensation is grossly intact to light touch bilateral lower extremities. LABORATORY DATA: H and H 10.4 and 30. INR 1.48. RADIOGRAPHS: Postoperative films show no hardware failure, status post right knee arthroplasty. DISCHARGE MEDICATIONS: 1. Lisinopril 10 mg p.o. daily. 2. Colace 100 mg p.o. b.i.d. 3. Terazosin 5 mg p.o. daily. 4. Coumadin 1 to 3 tablets p.o. q. 5 p.m. as directed physician. 5. Percocet 5/325 one to two tablets q.4 hours p.r.n. pain. 6. Onglyza 5 mg p.o. daily. 7. Metformin 1000 mg p.o. b.i.d. 8. Glipizide 10 mg p.o. b.i.d. CONDITION ON DISCHARGE: Stable. DISCHARGE INSTRUCTIONS: Mr. Hyde is a very pleasant 71-year-old gentleman, status post right total knee replacement on postoperative day #4, which was uncomplicated. He is orthopedically and medically stable for discharge to go home with home services. His labs and vital signs are stable. He will restart his home medications. 1. He will take 10 mg of Coumadin on Thursday01/23/17, 8 mg on 01/24/17, and 8 mg on 01/25/17 and will have his INR rechecked on Thursday with further dosing. He will have INR draws on Thursday and with visiting home nursing services. 2. He will remain weightbearing as tolerated on the right lower extremity. 3. He will have home physical therapy 1 to 2 times a week. 4. He will take Percocet as needed for pain control. 5. He will take Colace up to 3 times a day for constipation and was advised to take either a laxative or a suppository as needed or if he has not had a bowel motion within 48 hours. 6. He will follow up with Dr. Sousa in approximately 3 to 4 weeks for incision check. 7. He was instructed to go immediately to the ER should he develop chest pain or shortness of breath. 8. Should he develop fever, increasing pain, or redness, he is to call the office immediately. 9. His shaunna will be taken out by visiting home nursing services in approximately 10 to 14 days. FRANCES RICKS [id number]/[facility] #: [id number] [facility] CENTERFaye
== END 2017-01-23 14:45 | disposition home health service (06) | DRG 470 ==
LOC: AA 01-19 08:34 → SSU 01-19 13:23
PROVIDERS: ADMIT Orthopaedic Surgery; ATTEND Orthopaedic Surgery
PROC: 0SRC0J9 Replacement of Right Knee Joint with Synthetic Substitute, Cemented, Open Approach (ICD-10-PCS; principal; 2017-01-19 10:00)
PROC: 3E0234Z Introduction of Serum, Toxoid and Vaccine into Muscle, Percutaneous Approach (ICD-10-PCS; 2017-01-20)
DX: M17.11 Unilateral primary osteoarthritis, right knee (principal); E11.9 Type 2 diabetes mellitus without complications; I10 Essential (primary) hypertension; N40.0 Benign prostatic hyperplasia without lower urinary tract symptoms; Z86.12 Personal history of poliomyelitis; Z79.84 Long term (current) use of oral hypoglycemic drugs; E66.9 Obesity, unspecified; Z87.891 Personal history of nicotine dependence; Z82.49 Family history of ischemic heart disease and other diseases of the circulatory system; Z80.9 Family history of malignant neoplasm, unspecified; Z68.32 Body mass index [BMI] 32.0-32.9, adult; Z23 Encounter for immunization
CPT/HCPCS: 36415; 80048; 83036; 85014; 85018; 85025; 85610; 88305; 88311; 90686; A9270-GY; C1776; J0690; J1100; J1170; J1200; J1644; J1885; J2250; J2405; J2704; J3010